=== PATIENT | male | born 1980 | race Caucasian/White ===

== ENCOUNTER 2017-05-17 07:03 | Emergency (ER) | payer SELFPAY ==
[~2017-05-17] VITALS: Ht 162.6 cm; Wt 72.0 kg
[~2017-05-17 07:03] MED LIST: CYCL5TAB PO; DARV PO; OXYC-103 PO; OXYC-360 PO; XANA2TAB2 PO
[2017-05-17 07:06] VITALS: BP 150/85; PULSE 78; RESP 14; TEMP 98.4; O2SAT 99
[2017-05-17] MEDS ORDERED: SODIUM CHLOR 0.9% 1000 ML INJ 1,000 ML IV SCH (07:25)
[2017-05-17] MEDS ORDERED: SODIUM CHLORIDE 0.9% FLUSH 10 ML FLUSH IV FLUSH PRN (07:30)
[2017-05-17] MEDS ORDERED: MORPHINE SULFATE 4 MG/ML INJ IV PUSH ONE (07:30)
[2017-05-17] MEDS ORDERED: KETOROLAC TROMETHAMINE 30 MG/ML (IVP) VIAL IVP ONE (07:30)
[2017-05-17] MEDS ORDERED: ONDANSETRON HCL 4 MG/2 ML VIAL IVP ONE (07:30)
--- NOTE | 2017-05-17 07:35 | PD ---
HPI Chief Complaint: Back/ Neck Pain or Injury Time Seen by Provider: 07:20 Travel History International Travel<30 days: No Contact w/Intl Traveler<30days: No Traveled to known affect area: No History of Present Illness HPI 36-year-old male presents to emergency Department with right lower back pain radiating into the right anterior abdomen since last evening. Patient states the pain is gotten worse in the anterior abdomen with increased pain with movement, or riding in the car. He has mild nausea but no vomiting. Denies urinary symptoms. No bowel movement since yesterday morning. The patient has been working hard at a new job with heavy lifting, but denies radiation into the right leg. Patient has not had surgery in his abdomen other than from a hernia when he was 2. Patient denies any "lumps or bumps". Patient has no history of kidney stones. Patient is not a heavy drinker. He is allergic to iodine. PFSH Social History Alcohol Use: Yes (1 BEER PER MONTH) Tobacco Use: Yes (10 PACK YRS) Substance Use: No Allergies-Medications (Allergen,Severity, Reaction): Coded Allergies: iodine (Unverified Allergy, Mild, 01/21/17) potassium iodide (Unverified Allergy, Mild, 01/21/17) povidone-iodine (Unverified Allergy, Mild, 01/21/17) shellfish derived (Unverified Allergy, Mild, 01/21/17) sodium iodide (Unverified Allergy, Mild, 01/21/17) sodium iodide (Unverified Allergy, Mild, 01/21/17) Reported Meds & Prescriptions Reported Meds & Active Scripts Active Flexeril (Cyclobenzaprine HCl) 10 Mg Tab 10 Mg PO TID Ibuprofen 800 Mg Tab 800 Mg PO Q8H PRN Review of Systems Except as stated in HPI: all other systems reviewed are Neg General / Constitutional: Positive: Chills, No: Fever Eyes: No: Visual changes HENT: No: Headaches Cardiovascular: No: Chest Pain or Discomfort Respiratory: No: Shortness of Breath Gastrointestinal: Positive: Nausea, Abdominal Pain, No: Vomiting, Diarrhea Genitourinary: No: Dysuria Musculoskeletal: Positive: Myalgias, No: Arthralgias, Limited ROM, Pain Skin: No Rash Neurologic: No: Weakness Psychiatric: No: Depression Endocrine: No: Polydipsia Hematologic/Lymphatic: No: Easy Bruising Physical Exam Narrative GENERAL: Patient appears in mild to moderate distress. SKIN: Warm and dry. HEAD: Atraumatic. Normocephalic. EYES: Pupils equal and round. No scleral icterus. No injection or drainage. ENT: No nasal bleeding or discharge. Mucous membranes pink and moist. NECK: Trachea midline. No JVD. CARDIOVASCULAR: Regular rate and rhythm. RESPIRATORY: No accessory muscle use. Clear to auscultation. Breath sounds equal bilaterally. GASTROINTESTINAL: Abdomen soft, mild to moderate diffuse tenderness in the lower abdomen on the right than the left, nondistended. No rebound. Question positive psoas sign. Hepatic and splenic margins not palpable. MUSCULOSKELETAL: Extremities without clubbing, cyanosis, or edema. No obvious deformities. NEUROLOGICAL: Awake and alert. No obvious cranial nerve deficits. Motor grossly within normal limits. Five out of 5 muscle strength in the arms and legs. Normal speech. PSYCHIATRIC: Appropriate mood and affect; insight and judgment normal. Data Data Last Documented VS Vital Signs Date Time Temp Pulse Resp B/P (MAP) Pulse Ox O2 Delivery O2 Flow Rate FiO2 05/17/17 07:06 98.4 78 14 150/85 (106) 99 Orders Orders Complete Blood Count With Diff (05/17/17 07:25) Comprehensive Metabolic Panel (05/17/17 07:25) Lipase (05/17/17 07:25) Lactic Acid (05/17/17 07:25) Prothrombin Time / Inr (Pt) (05/17/17 07:25) Act Partial Throm Time (Ptt) (05/17/17 07:25) Urinalysis - C+S If Indicated (05/17/17 07:25) Iv Access Insert/Monitor (05/17/17 07:25) Ecg Monitoring (05/17/17 07:25) Oximetry (05/17/17 07:25) Morphine Inj (Morphine Inj) (05/17/17 07:30) Ondansetron Inj (Zofran Inj) (05/17/17 07:30) Sodium Chlor 0.9% 1000 Ml Inj (Ns 1000 M (05/17/17 07:25) Sodium Chloride 0.9% Flush (Ns Flush) (05/17/17 07:30) Ketorolac Inj (Toradol Inj) (05/17/17 07:30) Oral Contrast - Adult (05/17/17 07:35) Ct Abd/Pel W/O Iv Contrast (05/17/17 08:15) Labs Laboratory Tests Test 05/17/17 07:40 05/17/17 08:05 05/17/17 08:15 White Blood Count 6.0 TH/MM3 Red Blood Count 5.27 MIL/MM3 Hemoglobin 15.6 GM/DL Hematocrit 46.2 % Mean Corpuscular Volume 87.7 FL Mean Corpuscular Hemoglobin 29.7 PG Mean Corpuscular Hemoglobin Concent 33.8 % Red Cell Distribution Width 14.0 % Platelet Count 258 TH/MM3 Mean Platelet Volume 8.3 FL Neutrophils (%) (Auto) 64.0 % Lymphocytes (%) (Auto) 24.5 % Monocytes (%) (Auto) 8.1 % Eosinophils (%) (Auto) 2.7 % Basophils (%) (Auto) 0.7 % Neutrophils # (Auto) 3.8 TH/MM3 Lymphocytes # (Auto) 1.5 TH/MM3 Monocytes # (Auto) 0.5 TH/MM3 Eosinophils # (Auto) 0.2 TH/MM3 Basophils # (Auto) 0.0 TH/MM3 CBC Comment DIFF FINAL Differential Comment Prothrombin Time 9.6 SEC Prothromb Time International Ratio 0.9 RATIO Activated Partial Thromboplast Time 27.4 SEC Blood Urea Nitrogen 9 MG/DL Creatinine 0.96 MG/DL Random Glucose 92 MG/DL Total Protein 8.5 GM/DL Albumin 4.4 GM/DL Calcium Level 9.1 MG/DL Alkaline Phosphatase 89 U/L Aspartate Amino Transf (AST/SGOT) 22 U/L Alanine Aminotransferase (ALT/SGPT) 20 U/L Total Bilirubin 0.4 MG/DL Sodium Level 140 MEQ/L Potassium Level 3.6 MEQ/L Chloride Level 106 MEQ/L Carbon Dioxide Level 26.5 MEQ/L Anion Gap 8 MEQ/L Estimat Glomerular Filtration Rate 89 ML/MIN Lipase 416 U/L Lactic Acid Level 1.4 mmol/L Urine Color YELLOW Urine Turbidity HAZY Urine pH 5.5 Urine Specific Kaufman 1.036 Urine Protein TRACE mg/dL Urine Glucose (UA) NEG mg/dL Urine Ketones TRACE mg/dL Urine Occult Blood NEG Urine Nitrite NEG Urine Bilirubin NEG Urine Urobilinogen 2.0 MG/DL Urine Leukocyte Esterase NEG Urine RBC LESS THAN 1 /hpf Urine WBC 1 /hpf Urine Squamous Epithelial Cells <1 /hpf Urine Calcium Oxalate Crystals FEW /hpf Urine Mucus MANY /lpf Microscopic Urinalysis Comment CULT NOT INDICATED MDM Medical Decision Making Medical Screen Exam Complete: Yes Emergency Medical Condition: Yes Differential Diagnosis Low back pain. UTI. Renal colic. Appendicitis. Narrative Course Patient is medically stable at time of exam. Labs ordered including CBC, CMP, PT PTT and INR, lactic acid, urinalysis. Abdominal CT with oral contrast was ordered. It is noted the patient is allergic to iodine. IV access is obtained patient is given 1000 mls normal saline bolus. Patient is given 4 mg morphine IV, as well as 4 mg Zofran IV, as well as 30 mg Toradol IV. Labs are unremarkable except for a slightly elevated is of 410. CT is negative for acute process in the abdomen and pelvis. Patient will be treated for muscle skeletal pain with ibuprofen 800 mg 3 times daily with food as well as Flexeril 10 mg up to 3 times a day. Work note is given for 2 days. Patient is to follow up if symptoms do not improve or worsen as needed. Diagnosis Primary Impression: Low back pain Qualified Codes: M54.5 - Low back pain Referrals: [facility] Patient Instructions: Acute Low Back Pain (ED), General Instructions Departure Forms: Work Release Enter return to work date: May 19, 2017 Additional Instructions: Labs are unremarkable except for a slightly elevated is of 410. CT is negative for acute process in the abdomen and pelvis. Patient will be treated for muscle skeletal pain with ibuprofen 800 mg 3 times daily with food as well as Flexeril 10 mg up to 3 times a day. Work note is given for 2 days. Patient is to follow up if symptoms do not improve or worsen as needed. Med/Other Pt SpecificInfo: Prescription(s) given Scripts Cyclobenzaprine (Flexeril) 10 Mg Tab 10 MG PO TID for Muscle Spasm, #30 TAB 0 Refills Prov: Del Fraser MD 05/17/17 Ibuprofen (Ibuprofen) 800 Mg Tab 800 MG PO Q8H Y for Pain/Inflammation, #60 TAB 0 Refills Prov: Del Fraser MD 05/17/17 Disposition: 01 DISCHARGE HOME Condition: Stable Derek Smiley May 17, 2017 07:35
[2017-05-17 07:56] LABS: AUTOMATED NEUTROPHIL # 3.8 TH/MM3 (1.8-7.7); BASOPHIL % 0.7 % (0.0-2.0); EOSINOPHIL # 0.2 TH/MM3 (0-0.4); EOSINOPHIL % 2.7 % (0.0-4.0); HEMATOCRIT 46.2 % (39.0-51.0); HEMO FLAGS DIFF FINAL; LYMPH % 24.5 % (9.0-44.0); LYMPHOCYTE # 1.5 TH/MM3 (1.0-4.8); MEAN CELL VOLUME 87.7 FL (80.0-100.0); MEAN CORPUSCULAR HEMOGLOBIN 29.7 PG (27.0-34.0); MEAN CORPUSCULAR HGB CONC 33.8 % (32.0-36.0); MONO % 8.1 % (0.0-8.0); PLATELET COUNT 258 TH/MM3 (150-450); RED BLOOD COUNT 5.27 MIL/MM3 (4.50-5.90)
[2017-05-17 08:04] LABS: APTT (PATIENT) 27.4 SEC (24.3-30.1); INTERNATIONAL NORMALIZED RATIO 0.9 RATIO; PROTHROMBIN TIME - PATIENT 9.6 SEC (9.8-11.6)
[2017-05-17 08:17] LABS: ALT (GPT) 20 U/L (12-78); ANION GAP 8 MEQ/L (5-15); AST (GOT) 22 U/L (15-37); BICARBONATE 26.5 MEQ/L (21.0-32.0); BLOOD UREA NITROGEN 9 MG/DL (7-18); CHLORIDE 106 MEQ/L (98-107); GLOMERULAR FILTRATION RATE 89 ML/MIN (>89); POTASSIUM 3.6 MEQ/L (3.5-5.1); SODIUM (NA) 140 MEQ/L (136-145)
[2017-05-17 08:19] LABS: ALKALINE PHOSPHATASE 89 U/L (45-117); TOTAL BILIRUBIN ADULT 0.4 MG/DL (0.2-1.0)
[2017-05-17 08:48] LABS: BLOOD, URINE NEG (NEG); CALCIUM OXALATE CRYSTALS,URINE FEW /hpf; COMMENT (UR) CULT NOT INDICATED; CULTURE IF INDICATED CULT NOT INDICATED; GLUCOSE,URINE NEG (NEG); KETONE, URINE TRACE mg/dL (NEG); MUCUS URINE MANY /lpf (OCC); NITRITE,URINE NEG (NEG); PH, URINE 5.5 (5.0-8.5); SQUAMOUS EPITHELIAL CELL URINE <1 /hpf (0-5); URINE COLOR YELLOW (YELLW/STRAW)
--- NOTE | 2017-05-17 08:49 | RADRPT ---
EXAM DATE/TIME: 05/17/2017 08:31 [place] COMPARISON: No previous studies available for comparison. INDICATIONS : Right lower abdomen pain today. ORAL CONTRAST: No oral contrast ingested. RADIATION DOSE: 5.02 CTDIvol (mGy) MEDICAL HISTORY : None SURGICAL HISTORY : None. ENCOUNTER: Initial ACUITY: 1 day PAIN SCALE: 7/10 LOCATION: Right lower quadrant TECHNIQUE: Volumetric scanning of the abdomen and pelvis was performed. Using automated exposure control and ad justment of the mA and/or kV according to patient size, radiation dose was kept as low as reasonably achievable to obtain optimal diagnostic quality images. DICOM format image data is available electro nically for review and comparison. FINDINGS: LOWER LUNGS: The visualized lower lungs are clear. LIVER: Homogeneous density without lesion. There is no dilation of the biliary tree. No calcified gallston es. SPLEEN: Normal size without lesion. PANCREAS: Within normal limits. KIDNEYS: Normal in size and shape. There is no mass, stone, or hydronephrosis. ADRENAL GLANDS: Within normal limits. VASCULAR: There is no aortic aneurysm. BOWEL/MESENTERY: The stomach, small bowel, and colon demonstrate no acute abnormality. Appendix is visualized and nor mal in appearance. There is no free intraperitoneal air or fluid. ABDOMINAL WALL: Within normal limits. RETROPERITONEUM: There is no lymphadenopathy. BLADDER: No wall thickening or mass. REPRODUCTIVE: Within normal limits. INGUINAL: There is no lymphadenopathy or hernia. MUSCULOSKELETAL: Within normal limits for patient age. CONCLUSION: 1. Normal appendix. 2. No radiopaque renal calculi or evidence for obstructive uropathy. 3. No acute CT abnormality in the abdomen or pelvis. Antony Diaz MD on May 17, 2017 at 8:46 Board Certified Radiologist. This report was verified electronically.
[2017-05-17] MEDS ORDERED: IBUP1TAB7 PO (09:02)
[2017-05-17] MEDS ORDERED: CYCL10TA PO (09:02)
== END 2017-05-17 09:33 | disposition home or self-care (01) ==
LOC: NEPD 07:03
DX: M54.5 Low back pain (principal); R11.0 Nausea; R10.31 Right lower quadrant pain; Z72.0 Tobacco use
CPT/HCPCS: 74176; 80053; 81001; 83605; 83690; 85025; 85610; 85730; 96374; 96375; 99285; J1885; J2270; J2405; J7030

== ENCOUNTER 2017-11-22 12:40 | Emergency (ER) | payer SELFPAY ==
[~2017-11-22] VITALS: Ht 165.1 cm; Wt 68.0 kg
[~2017-11-22 12:40] MED LIST changes: +CYCL10TA PO; -CYCL5TAB PO; -DARV PO; +IBUP1TAB7 PO; -OXYC-103 PO; -OXYC-360 PO; -XANA2TAB2 PO
[2017-11-22 12:46] VITALS: BP 140/75; PULSE 82; RESP 18; TEMP 98.6; O2SAT 99
--- NOTE | 2017-11-22 14:48 | PD ---
HPI Chief Complaint: Eye Problems/Injury Time Seen by Provider: 14:15 Travel History International Travel<30 days: No Contact w/Intl Traveler<30days: No Traveled to known affect area: No History of Present Illness HPI Patient is 37-year-old male presenting to the emergency department for evaluation of right eye redness, crusting. 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 He noticed redness and a possible to the inner aspect of the upper eyelid. Patient states he put a washcloth on it and it was drained spontaneously. Today he reports visual changes specifically black spots. He denies any fever, chills, foreign body sensation, photophobia. He denies a significant past medical history. Symptom onset was gradual, symptoms are moderate in nature. PFSH Past Medical History Medical History: Denies Significant Hx Diminished Hearing: No Immunizations Current: Yes Past Surgical History Abdominal Surgery: Yes (HERNIA SURGERY) Social History Alcohol Use: Yes (OCC) Tobacco Use: Yes (1PPD) Substance Use: Yes (IV DRUG USE 1.5 YEARS AGO , MARIJUANA LAST USE THIS MORNING) Allergies-Medications (Allergen,Severity, Reaction): Coded Allergies: iodine (Unverified Allergy, Mild, 01/21/17) potassium iodide (Unverified Allergy, Mild, 01/21/17) povidone-iodine (Unverified Allergy, Mild, 01/21/17) shellfish derived (Unverified Allergy, Mild, 01/21/17) sodium iodide (Unverified Allergy, Mild, 01/21/17) sodium iodide (Unverified Allergy, Mild, 01/21/17) Reported Meds & Prescriptions Reported Meds & Active Scripts Active Flexeril (Cyclobenzaprine HCl) 10 Mg Tab 10 Mg PO TID Ibuprofen 800 Mg Tab 800 Mg PO Q8H PRN Review of Systems Except as stated in HPI: all other systems reviewed are Neg Eyes: Positive: Blurred Vision, Drainage, Redness Physical Exam Narrative GENERAL: Well-developed, well-nourished, alert male. Presenting in no acute distress. SKIN: Warm and dry. HEAD: Normocephalic. EYES: No scleral icterus. Mild injection to the right eye, edema and mild erythema to the right upper eyelid, there is a 3 cm pustule to the medial aspect of the right upper eyelid. Fluorescein eye exam is negative for abrasions, lesions, foreign bodies. Extraocular movements are intact. Pupils are equal, round, reactive. NECK: Supple, trachea midline. No JVD or lymphadenopathy. CARDIOVASCULAR: Regular rate and rhythm without murmurs, gallops, or rubs. RESPIRATORY: Breath sounds equal bilaterally. No accessory muscle use. GASTROINTESTINAL: Abdomen soft, non-tender, nondistended. MUSCULOSKELETAL: No cyanosis, or edema. BACK: Nontender without obvious deformity. No CVA tenderness. Data Data Last Documented VS Vital Signs Date Time Temp Pulse Resp B/P (MAP) Pulse Ox O2 Delivery O2 Flow Rate FiO2 11/22/17 14:15 18 11/22/17 12:46 98.6 82 140/75 (96) 99 Orders Orders Ciprofloxacin 0.3% Opth Oint (Ciloxan 0. (11/22/17 15:30) Wound Culture And Gram Stain (11/22/17 15:16) Ciprofloxacin 0.3% Opth Soln (Ciloxan 0. (11/22/17 15:30) Amoxicil-Clavulanate (Augmentin) (11/22/17 15:30) MDM Medical Decision Making Medical Screen Exam Complete: Yes Emergency Medical Condition: Yes Interpretation(s) Vital Signs Date Time Temp Pulse Resp B/P (MAP) Pulse Ox O2 Delivery O2 Flow Rate FiO2 11/22/17 14:15 18 11/22/17 12:46 98.6 82 18 140/75 (96) 99 Differential Diagnosis Stye versus abscess versus cellulitis versus other Narrative Course Patient is a 37-year-old male presenting with cellulitis and abscess to the right upper eyelid. Patient's vital signs are stable. Fluorescein exam is negative. Care of patient transferred to my attending physician. Please see her documentation. Olga Ritter Nov 22, 2017 14:48
[2017-11-22] MEDS ORDERED: CIPROFLOXACIN 0.3% OPTH SOLN 2.5 ML BTL RIGHT EYE ONE (15:30)
[2017-11-22] MEDS ORDERED: CIPROFLOXACIN 0.3% OPTH OINT 3.5 GM TUBO RIGHT EYE ONE (15:30)
[2017-11-22] MEDS ORDERED: AMOXICILLIN/CLAVULANATE K 500 MG TAB PO ONE (15:30)
[2017-11-22] MEDS ORDERED: AUGM500T7 PO (15:34)
[2017-11-22] MEDS ORDERED: CIPR0.3S2 RIGHT EYE (15:34)
--- NOTE | 2017-11-22 15:34 | PD ---
Physical Exam Date Seen by Provider: Nov 22, 2017 Time Seen by Provider: 15:28 Narrative 37-year-old male came to the emergency room with right eye infection. Patient says that 2 days ago while he was working a piece of glass flew and hit his right upper eyelid. Since his upper eyelid has been painful and slowly getting swollen. Today he was unable to open his eyes because of the pain from the upper eyelid. There has been yellowish discharge from the medial corner of his eye. I went and examined his eye and the right upper eyelid was erythematous and swollen. You could see a 0.2 cm circular abscess right at the medial corner of the eyelid. There was some yellowish purulent discharge draining and collecting in the medial canthus. I took cultures of that. Once the eyelid was parted open patient had good vision and good extraocular eye movement. No pain on eye movement. Patient is seen by my nurse practitioner I am supervising her. I collected some culture of the purulent discharge. I discussed the case with assistant professor of biochemistry Dr. Garza and she wanted ophthalmic eyedrops and p.o. Augmentin started and she would see him in her office on Friday morning. These discharge instructions have been verbally given to the patient as well as on paper. He will be discharged home. He is getting first dose of these antibiotics in the emergency room. Data Data Last Documented VS Vital Signs Date Time Temp Pulse Resp B/P (MAP) Pulse Ox O2 Delivery O2 Flow Rate FiO2 11/22/17 14:15 18 11/22/17 12:46 98.6 82 140/75 (96) 99 Orders Orders Ciprofloxacin 0.3% Opth Oint (Ciloxan 0. (11/22/17 15:30) Wound Culture And Gram Stain (11/22/17 15:16) Amoxicil-Clavulanate (Augmentin) (11/22/17 15:30) Ed Discharge Order (11/22/17 15:35) Non-Formulary Drug (11/22/17 16:00) MDM Supervised Visit with NELIDA: Yes Physician Communication Physician Communication Dr. Garza Diagnosis Primary Impression: Abscess, eyelid Qualified Codes: H00.033 - Abscess of eyelid right eye, unspecified eyelid Referrals: Krystina Garza MD 2 days Additional Instruction: Please follow-up with the assistant professor of biochemistry was name and number been provided to you on the discharge instruction Friday. Please call the office at 8 AM to get the exact appointment time. Take the medication as per the prescription instructions. Return to the ER if condition worsens or any other new concerns. You can apply warm compress to the eyelid in addition. Med/Other Pt SpecificInfo: Prescription(s) given Scripts Amoxicillin-Clavulanate (Augmentin) 500-125 mg Tab 500 MG PO BID for Infection for 10 Days, TAB 0 Refills Prov: Magalys Crenshaw MD 11/22/17 Ciprofloxacin Opth Drops (Ciprofloxacin Opth Drops) 0.3% Soln 2 DROP RIGHT EYE Q2H for Infection, #1 BOTTLE 0 Refills while awake x 5 days. Prov: Magalys Crenshaw MD 11/22/17 Disposition: 01 DISCHARGE HOME Condition: Stable Magalys Crenshaw MD Nov 22, 2017 15:34
[2017-11-22] MEDS ORDERED: CIPROFLOXACIN 0.3% RIGHT EYE ONE (16:00)
== END 2017-11-22 16:20 | disposition home or self-care (01) ==
LOC: NEPD 12:40
DX: H00.031 Abscess of right upper eyelid (principal); B96.3 Hemophilus influenzae [H. influenzae] as the cause of diseases classified elsewhere; A49.02 Methicillin resistant Staphylococcus aureus infection, unspecified site; F12.90 Cannabis use, unspecified, uncomplicated; F17.200 Nicotine dependence, unspecified, uncomplicated
CPT/HCPCS: 86403; 87070; 87077; 87184; 87185; 87186; 87205; 99283